=== PATIENT | male | born 1995 | race Caucasian/White ===

== ENCOUNTER → 2016-06-22 | Emergency (ER) | payer BC, OTHER ==
[~2016-06-22] MED LIST: CEFAZOLIN 1 GM in DEXTROSE 5%-WATER - 50 ML IVPB ONE; DIPHTH,PERTUSS(ACELL),TET 0.5 ML DISP.SYRIN IM ONE; ONDANSETRON 4 MG/2 ML VIAL IVPUSH ONE; ONDANSETRON 4 MG/2 ML VIAL ONE; SODIUM CHLORIDE 1,000 ML IV SCH; ceFAZolin SODIUM 1 GM VIAL ONE; morphine CARPU-JECT 10 MG/1 ML DISP.SYRIN ONE; morphine CARPU-JECT 4 MG/1 ML DISP.SYRIN IVPUSH ONE
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
[2016-06-22 15:27] VITALS: TEMP 98.7; BMI 21.6
[2016-06-22 16:42] VITALS: BP 140/82; PULSE 92
== END | disposition short-term general hospital (02) ==
LOC: FER 14:42
PROC: 3E0234Z Introduction of Serum, Toxoid and Vaccine into Muscle, Percutaneous Approach (ICD-10-PCS; principal; 2016-06-22)
PROC: 3E03329 Introduction of Other Anti-infective into Peripheral Vein, Percutaneous Approach (ICD-10-PCS; 2016-06-22)
PROC: 3E033NZ Introduction of Analgesics, Hypnotics, Sedatives into Peripheral Vein, Percutaneous Approach (ICD-10-PCS; 2016-06-22)
PROC: 3E033GC Introduction of Other Therapeutic Substance into Peripheral Vein, Percutaneous Approach (ICD-10-PCS; 2016-06-22)
PROC: 3E0337Z Introduction of Electrolytic and Water Balance Substance into Peripheral Vein, Percutaneous Approach (ICD-10-PCS; 2016-06-22)
DX: S62.511B Displaced fracture of proximal phalanx of right thumb, initial encounter for open fracture (principal); X58.XXXA Exposure to other specified factors, initial encounter; Y93.89 Activity, other specified; Y92.9 Unspecified place or not applicable
CPT/HCPCS: 73130-TC-RT; 90715; 99283-25

== ENCOUNTER 2021-04-10 10:00 | Emergency (ER) | payer BC, OTHER ==
[2021-04-10 10:05] VITALS: BP 144/77; PULSE 76; TEMP 97.8; BMI 21.6
[2021-04-10] MEDS ORDERED: DIPHTH,PERTUSS(ACELL),TET 0.5 ML DISP.SYRIN IM ONE ×2 (10:40→10:47)
== END 2021-04-10 11:10 | disposition home or self-care (01) ==
LOC: FER 10:00
PROC: 3E0234Z Introduction of Serum, Toxoid and Vaccine into Muscle, Percutaneous Approach (ICD-10-PCS; principal; 2021-04-10)
DX: S91.341A Puncture wound with foreign body, right foot, initial encounter (principal); Z18.81 Retained glass fragments; W25.XXXA Contact with sharp glass, initial encounter
CPT/HCPCS: 90471; 90715; 99284-25

== ENCOUNTER 2021-04-16 10:50 | Emergency (ER) | payer OTHER ==
[2021-04-16 11:05] VITALS: BP 131/99; PULSE 98; TEMP 98.5; BMI 21.6
[2021-04-16] MEDS ORDERED: ACETAMINOPHEN 325 MG TABLET (FP) PO ONE (11:54)
[2021-04-16] MEDS ORDERED: ACETAMINOPHEN 325 MG TABLET (FP) ONE (11:58)
== END 2021-04-16 12:36 | disposition home or self-care (01) ==
LOC: FER 10:50
DX: M79.672 Pain in left foot (principal)
CPT/HCPCS: 73610-TC-LT-FY; 73630-TC-LT; 99283-25